=== PATIENT | female | born 1990 | race African-American/Black ===

== ENCOUNTER 2024-10-09 12:34 | Emergency (ER) | payer MEDICAID, OTHER ==
[~2024-10-09] VITALS: Ht 160 cm; Wt 103.6 kg
[2024-10-09 13:34] VITALS: BP 114/85; PULSE 106; RESP 18; TEMP 98.3; O2SAT 98
[2024-10-09 13:40] LABS: Urine Bacteria FEW /hpf (None Seen); Urine Blood 3+ /uL (Negative); Urine Clarity Turbid (Clear); Urine Mucus FEW (None Seen); Urine Protein, UAD 1+ (Negative); Urine Specific Gravity 1.022 (1.001-1.035); Urine Urobilinogen Normal (Negative); Urine WBC 9 /hpf (0 - 5); Urine pH 6.5 (5.0-9.0)
[2024-10-09 13:41] LABS: Urine Color Yellow (Yellow)
--- NOTE | 2024-10-09 14:21 | DVH ---
Procedure: US PELVIC Study Date and Requested Time: 10/09/2024 01:48 PM Study Description: US PELVIC History: vag bleed Comparison: None Technique: Multiple transabdominal and transvaginal high resolution gonsalez-scale images obtained of the uterus and adnexa with color Doppler for evaluation of adnexal blood flow and vascularity as indicat ed. Findings: Uterus measures 9.1 x 5.1 x 4.1 cm, with homogeneous echotexture. Endometrium within normal limits, m easuring 0.3 cm in thickness with smooth contour. Cervix within normal limits. Right ovary measures 4.1 x 3.7 x 2 cm with a 3 cm cyst. Normal color doppler flow of the right ovary . The left ovary is not visualized. Trace amount of free fluid within the cul-de-sac which may be physiologic. Impression: 3 cm right ovarian cyst. The left ovary is not visualized. Trace amount of free fluid within the pelvis which may be physiologic.
[2024-10-09] MEDS ORDERED: MEDR5TAB28 PO (15:04)
--- NOTE | 2024-10-09 15:04 | ED.PDOC ---
DIE MOUNTER HPI Comments 34-year-old female complaining of vaginal bleeding which started on 09/28. Patient states she started with heavy clots and lots of debris and has continued to have a period since then. Denies any significant pain or cramping. No prior history of ovarian problems. States she does take control pill rarely has not missed a dose. Denies any fatigue denies any fever or chills. Chief Complaint: Vaginal Bleed Time Seen by MD: 12:53 Reviewed Notes: Nurses Notes Information Source: Patient Past Medical History PAST MEDICAL HISTORY: Denies Surgical History: Denies all surgeries WIRE FRAME DIPPER History: No Pertinent WIRE FRAME DIPPER History Constitutional: denies: chills, diaphoresis, fatigue, fever, malaise, sweats, weakness, others EENTM: denies: blurred vision, double vision, ear bleeding, ear discharge, ear drainage, ear pain, ear ringing, eye pain, eye redness, hearing loss, mouth pain, mouth swelling, nasal discharge, nose bleeding, nose congestion, nose pain, photophobia, tearing, throat pain, throat swelling, voice changes, others Respiratory: denies: cough, hemoptysis, orthopnea, SOB at rest, shortness of breath, SOB with excertion, stridor, wheezing, others Cardiovascular: denies: chest pain, dizzy spells, diaphoresis, Dyspnea on exertion, edema, irregular heart beat, left arm pain, lightheadedness, palpitations, PND, syncope, others Gastrointestinal: denies: abdomen distended, abdominal pain, blood streaked bowels, constipated, diarrhea, dysphagia, difficulty swallowing, hematemesis, melena, nausea, poor appetite, poor fluid intake, rectal bleeding, rectal pain, vomiting, others Genitourinary: reports: abnormal vagina bleeding; denies: burning, dyspareunia, dysuria, flank pain, frequency, hematuria, incontinence, pain, , vagina discharge, urgency, others Neurological: denies: dizziness, fainting, headache, left sided numbness, left sided weakness, numbness, paresthesia, pre-existing deficit, right sided numbness, right sided weakness, seizure, speech problems, tingling, tremors, weakness, others Musculoskeletal: denies: back pain, gout, joint pain, joint swelling, muscle pain, muscle stiffness, neck pain, others Integumetry: denies: bruises, change in color, change in hair/nails, dryness, laceration, lesions, lumps, rash, wounds, others Allergic/Immunocompromised: denies: Difficulty Healing, Frequent Infections, Hives, Itching, others Hematologic/Lymphatic: denies: anemia, blood clots, easy bleeding, easy bruising, swollen glands, others Physical Exam General Appearance: No Apparent Distress, Normal HEENT: Normal ENT Inspection, Pharynx Normal, TMs Normal Neck: Full Range of Motion, Non-Tender, Normal, Normal Inspection Respiratory: Chest Non-Tender, Lungs Clear, No Accessory Muscle Use, No Respiratory Distress, Normal Breath Sounds Cardiovascular: No Edema, No JVD, No Murmur, No Gallop, Normal Peripheral Pulses, Regular Rate/Rhythm Breast Exam: Deferred Gastrointestinal: No Organomegaly, Non Tender, No Pulsatile Mass, Normal Bowel Sounds, Soft Genitalia: Deferred Pelvic: Deferred Rectal: Deferred Extremities: No calf tenderness, Normal capillary refill, Normal inspection, Normal range of motion, Non-tender, No pedal edema Musculoskeletal : Apperance: Normal Neurologic: Alert, helix coil winder II-XII nml as Tested, No Motor Deficits, Normal Affect, Normal Mood, No Sensory Deficits Cerebellar Function: Normal Reflexes: Normal Skin: Dry, Normal Color, Warm Lymphatic: No Adenopathy Was a procedure done? Was a procedure done?: No Differential Diagnosis (WIRE FRAME DIPPER) Vaginal Bleeding: Dysmenorrhea, Ectopic , Menorrhagia X-Ray, Labs, Meds, VS Vital Signs Date Time Temp Pulse Resp B/P (MAP) Pulse Ox O2 Delivery O2 Flow Rate FiO2 10/09/24 13:34 106 18 98 Room Air 10/09/24 13:34 98.3 106 18 114/85 (95) 98 98.3 10/09/24 13:27 98.3 106 18 114/85 (95) 98 Lab Test 10/09/24 13:29 Range/Units Urine Color Yellow Yellow Urine Clarity Turbid H Clear Urine pH 6.5 5.0-9.0 Urine Specific [place] 1.022 1.001-1.035 Urine Protein 1+ H Negative Urine Ketones 2+ H Negative Urine Blood 3+ H Negative /uL Urine Nitrite Negative Negative Urine Bilirubin Negative Negative Urine Urobilinogen Normal Negative mg/dL Urine Leukocyte Esterase Trace Negative /uL Urine RBC 8 0 - 4 /hpf Urine WBC 9 0 - 5 /hpf Urine Squamous Epithelial Cells Few <5 /hpf Urine Bacteria Few H None Seen /hpf Urine Mucus Few None Seen Urine Glucose Normal Normal mg/dL Urine Test Negative Negative X-Ray, Labs, Meds, VS Comment Imaging: X-rays and CT scans were reviewed and interpreted by this provider, imaging shows no fractures and no pathological disease. Pending radiology review. Laboratory: Labs reviewed and interpreted by this provider. No significant abnormalities noted. Patient has prior medical visits reviewed. Med reconciliation performed Vital signs reviewed Time of 1ST Reevaluation: 15:04 Reevaluation 1ST: Improved Patient Education/Counseling: Diagnosis, Treatment, Need For Follow Up (Patient advised to follow-up in the emergency room in the next 24 to 48 hours if symptoms do not improve. Advised follow-up with PCP in the next 3 to 5 days. Patient verbalized understanding. ) Family Education/Counseling: Diagnosis Departure 1 Departure Time of Disposition: 15:02 Impression: Primary Impression: Dysmenorrhea Disposition: HOME / SELF CARE / HOMELESS Condition: Fair e-Prescriptions Medroxyprogesterone Acetate (PROVERA) 5 Mg Tab 1 TAB PO DAILY, #10 TAB 11 Refills Prov: AMIRAH TORRES 10/09/24 Discharged With: Self Critical Care Note Critical Care Time?: No Stability Stability form required: No Heart Score Heart Score: Heart Score Response (Comments) Value History N/A 0 EKG N/A 0 Age N/A 0 Risk Factors N/A 0 Troponin N/A 0 Total 0 AMIRAH TORRES Oct 09, 2024 15:04
== END 2024-10-09 15:16 | disposition home or self-care (01) ==
LOC: ER 12:34
DX: N94.6 Dysmenorrhea, unspecified (principal); N83.201 Unspecified ovarian cyst, right side; Z32.02 Encounter for pregnancy test, result negative
CPT/HCPCS: 76830; 76856; 81001; 81025